=== PATIENT | female | born 1970 | race Caucasian/White ===

== ENCOUNTER 2021-03-07 11:37 | Emergency (ER) | payer OTHER, SELFPAY ==
[2021-03-07 11:49] VITALS: BP 98/61; PULSE 84; RESP 18; TEMP 36.6; O2SAT 99
--- NOTE | 2021-03-07 11:55 | ED.GENADULT ---
HPI - General Adult General Chief complaint: Upper Respiratory Infection Stated complaint: Sinus Complaint Time Seen by Provider: 03/07/21 11:55 Source: patient and RN notes reviewed Mode of arrival: ambulatory Limitations: no limitations History of Present Illness HPI narrative: 50-year-old female presents with complaints of upper respiratory infection, nausea, vomiting, fatigue, sore throat, tinnitus, and intermittent headache (not the worst of her life) for the past 4 days. Ricarda reports increasing symptoms daily with low-grade fever and decrease appetite. Ricarda reports felt better on 03/06/21, today had emesis enroute to work. No treatment. History of GI issues. Denies cough and chest congestion. Nasal congestion and rhinorrhea. Sore throat. Pain is bilateral. Hurts to swallow. Fevers, highest 100.0F, temporal with intermittent chills. No drooling or neck or throat swelling. No voice change. Nausea, vomiting, and diarrhea without abdominal pain.? Vomiting 4 times on Sunday, 2 times on Sunday and Sunday without blood. Diarrhea 4 times, 2 times on Sunday and Sunday without blood. Today 2 episode of emesis without blood at 09:00. Last had solids at 09:30 and liquids at 10:00 without emesis or diarrhea. Tolerating liquids well at this time. Denies dyspnea, difficulty swallowing, foreign body sensation, and rash. No chest pain. Remains active. The patient reports she have not been diagnosed with COVID-19. The patient reports she received 2 Pfizer COVID-19 vaccines. The patient reports she is not waiting for the results of a COVID-19 lab test. The patient reports she do not have any loss of taste or smell. Denies recent traveling. Denies concerns for COVID-19 or exposures. At this time, patient is not suspected of having COVID-19. Urinary complaints for the past 4 days. Dysuria consist of burning, frequency, and urgency.? No treatment. No significant pelvic pain. No vaginal discharge.? No concerns for STDs. Exacerbating factors urinating.? Denies hematuria or vaginal bleeding. LMP postmenopausal.? No flank pain. Nausea, vomiting, and diarrhea without abdominal pain.? Tolerating liquids well at this time. Some parts of this dictation were generated by voice recognition software and may contain typographical and/or grammatical inaccuracies. Related Data Home Medications Medication Instructions Recorded Confirmed gabapentin 03/07/21 mycophenolate mofetil PO 03/07/21 mycophenolate mofetil PO 03/07/21 prednisone 03/07/21 tacrolimus See Rx Instructions .ROUTE .COMPLEX 03/07/21 Allergies Allergy/AdvReac Type Severity Reaction Status Date / Time No Known Allergies Allergy Verified 03/07/21 11:58 Review of Systems Review of Systems: Narrative: CONSTITUTIONAL: Complains of fever, chills, fatigue. Denies sweats. EYES: Denies visual changes, redness, discharge. ENT: Complains of rhinorrhea, congestion, sore throat, tinnitus. Denies otalgia. CARDIOVASCULAR: Denies chest pain, palpitations, edema. RESPIRATORY: Denies dyspnea, wheezing, cough. GASTROINTESTINAL: Denies abdominal pain. Complains of nausea, vomiting, diarrhea. GENITOURINARY: Complains of dysuria. Denies hematuria, abnormal discharge SKIN: Denies rash or itching. MUSCULOSKELETAL: Denies acute back pain, joint pain, or myalgia. NEUROLOGIC: Denies numbness or focal weakness. Complains of intermittent YOUNG. PSYCHIATRIC: Denies anxiety or depression. All other systems reviewed & are unremarkable except as noted in HPI and below. 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
[2021-03-07 12:32] LABS: Glucose Point of Care 104 mg/dl (65-105)
== END 2021-03-07 13:15 | disposition home or self-care (01) ==
PROVIDERS: Emergency Provider Nurse Practitioner Family; PCP Internal Medicine
DX: B34.9 Viral infection, unspecified (principal); R30.0 Dysuria; Z20.822 Contact with and (suspected) exposure to COVID-19; E10.9 Type 1 diabetes mellitus without complications
CPT/HCPCS: 81003; 82948; 87086; 87426; 99213; C9803; G0463

== ENCOUNTER 2021-08-04 12:53 | Emergency (ER) | payer OTHER, SELFPAY ==
[2021-08-04 12:58] VITALS: BP 113/75; PULSE 60; RESP 16; TEMP 36.6; O2SAT 98
--- NOTE | 2021-08-04 13:02 | ED.URI ---
HPI - URI/Sore Throat General Chief Complaint: Upper Respiratory Infection Stated Complaint: sinus drainage/cough Time Seen by Provider: 08/04/21 13:02 Source: patient and RN notes reviewed Mode of arrival: ambulatory Limitations: no limitations History of Present Illness HPI Narrative: 51 yo female presents to the [facility] with C/O allergy-like symptoms, nasal drainage, scratchy throat and a productive cough since last night. Intermittent shortness of breath. Denies abdominal pain, chest pain and fevers. Had some nausea/ vomiting and diarrhea last week, states it only lasted a day or 2 and has since resolved. Patient reports a history of kidney/pancreas transplant in 2013. Tried Mucinex which helped her sleep and decrease the cough last night. No other treatment prior to arrival Even though patient is vaccinated fully, last vaccine was January 2021 states that she is concerned for Covid. elicited complaint: sore throat, rhinorrhea, nasal congestion and sinus pain Related Data Home Medications Medication Instructions Recorded Confirmed gabapentin 03/07/21 mycophenolate mofetil PO 03/07/21 mycophenolate mofetil PO 03/07/21 prednisone 03/07/21 tacrolimus See Rx Instructions .ROUTE .COMPLEX 03/07/21 cyanocobalamin (vitamin B-12) mcg 08/04/21 Allergies Allergy/AdvReac Type Severity Reaction Status Date / Time No Known Allergies Allergy Verified 03/07/21 11:58 Review of Systems Review of Systems: All systems reviewed & are unremarkable except as noted in HPI and below Constitutional: Constitutional: Reports no additional constitutional complaints ENT: Reports as per HPI, Reports nasal congestion and Denies sore throat Comments: allergy symptoms. Scratchy throat Cardiovascular: Cardiovascular: Reports no additional cardiovascular complaints, Denies chest pain, Denies rapid heart rate and Denies radiating jaw, neck or arm pain Respiratory: Respiratory: Reports as per HPI and Reports cough (Productive) Gastrointestinal: Gastrointestinal: Reports no additional gastrointestinal complaints Musculoskeletal: Musculoskeletal: Reports no additional musculoskeletal complaints Integumentary/Breasts: Skin/Breast: Reports system reviewed and no additional complaints, except as docu Neurologic: Reports system reviewed and no additional complaints, except as documented Psychiatric: Psychiatric: Reports no additional psychiatric complaints Allergic/Immunologic: Allergic/Immunologic: Reports no additional allergic/immunologic complaints PMFSH Past Medical History Medical History (Updated 08/04/21 @ 13:15 by Eli Buckley) H/O LEEP (loop electrosurgical excision procedure) of cervix complicating Post-menopausal Sinusitis 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 Surgical History Surgical History History of dental surgery Resulted in upper and lower dentures History of exploratory laparotomy History of lumpectomy of left breast Kidney transplant recipient Pancreas transplanted Family History Family History Grandparent Family history of osteoporosis Hypertension Family history of alcoholism Cerebrovascular accident Family history of chronic obstructive pulmonary disease Mother Family history of mental disorder Family history of anemia Father Hypertension Family history of diabetes mellitus in first degree relative Social History Social History Years smoked: 10 Smoking status: Current every day smoker Tobacco type: cigarettes Second hand tobacco smoke exposure: No (Ricarda baez has been smoking for the last 4 years this time around) Smoking end date: 10/15/10 Alcohol intake: never Substance use: never Gender identity (if verbalized by the patient): Female Comments At the time of my signature, I reviewed
== END 2021-08-04 13:20 | disposition home or self-care (01) ==
PROVIDERS: Emergency Provider Nurse Practitioner; PCP Internal Medicine
DX: J01.40 Acute pansinusitis, unspecified (principal); H65.03 Acute serous otitis media, bilateral; E10.9 Type 1 diabetes mellitus without complications; F17.210 Nicotine dependence, cigarettes, uncomplicated; Z94.0 Kidney transplant status
CPT/HCPCS: 99211; G0463